=== PATIENT | male | born 1955 | race Caucasian/White ===

== ENCOUNTER 2020-10-17 15:30 | Emergency (ER) | payer BC ==
[~2020-10-17] VITALS: Ht 180.3 cm; Wt 88.0 kg
[2020-10-17] MEDS ORDERED: DICL75TA PO (15:44)
[2020-10-17] MEDS ORDERED: LEVOTAB10 PO (15:44)
[2020-10-17] MEDS ORDERED: TRAM50TA2 PO (15:44)
[2020-10-17] MEDS ORDERED: RAMI1CAP24 PO (15:44)
[2020-10-17] MEDS ORDERED: FENO145T7 PO (15:44)
[2020-10-17] MEDS ORDERED: METO1TAB7 PO (15:44)
[2020-10-17] MEDS ORDERED: XARE20TA PO (15:44)
[2020-10-17] MEDS ORDERED: PRAV40TA2 PO (15:44)
[2020-10-17] MEDS ORDERED: CLOP75TA2 PO (15:44)
--- NOTE | 2020-10-17 16:09 | REP ---
INDICATION: CHEST PAIN. COMPARISON: None. TECHNIQUE: Single portable AP view of the chest was performed. FINDINGS: There is no acute infiltrate or pulmonary edema. Lungs are clear. The heart is not significantly enlarged. The mediastinal silhouette is unremarkable. The visualized osseous structures are intact. IMPRESSION: No acute pulmonary disease. <Electronically signed by Robe Garrett > 10/17/20 [id number]
[2020-10-17 16:27] LABS: BASO # 0.1 10^3/uL (0.0-0.2); BASO % 0.8 % (0.0-1.0); EOS # 0.4 10^3/uL (0.0-0.5); EOS % 4.7 % (0.0-3.0); HEMATOCRIT 45.1 % (42.0-52.0); HEMOGLOBIN 14.8 g/dl (13.5-17.5); LYMPH # 1.8 10^3/uL (1.5-5.0); LYMPH % 24.4 % (24.0-44.0); MEAN CORPUSCULAR HEMOGLOBIN 28.5 pg (27.0-33.0); MEAN CORPUSCULAR HGB CONC 32.8 g/dl (32.0-36.5); MEAN CORPUSCULAR VOLUME 86.7 fl (80.0-96.0); MONO # 0.9 10^3/uL (0.0-0.8); MONO % 11.7 % (2.0-8.0); NEUTROPHILS # 4.4 10^3/uL (1.5-8.5); NEUTROPHILS % 58.3 % (36.0-66.0); PLATELET COUNT, AUTOMATED 356 10^3/uL (150-450); WHITE BLOOD COUNT 7.5 10^3/uL (4.0-10.0)
[2020-10-17 16:41] LABS: BLOOD UREA NITROGEN 27 MG/DL (7-18); CALCIUM LEVEL 9.4 MG/DL (8.8-10.2); CARBON DIOXIDE LEVEL 26 MEQ/L (21-32); CHLORIDE LEVEL 109 MEQ/L (98-107); CREATININE FOR GFR 1.82 MG/DL (0.70-1.30); GLOMERULAR FILTRATION RATE 39.8 (>49); GLUCOSE, FASTING 81 MG/DL (70-100); POTASSIUM SERUM 4.9 MEQ/L (3.5-5.1); SODIUM LEVEL 141 MEQ/L (136-145)
[2020-10-17 17:19] LABS: INR 2.36; PROTHROMBIN TIME 26.2 SECONDS (12.7-14.5)
[2020-10-17 17:20] LABS: PARTIAL THROMBOPLASTIN TIME 45.2 SECONDS (25.9-37.0)
[2020-10-17 17:23] LABS: RSV AMPLIFICATION NEGATIVE (NEGATIVE)
[2020-10-17 17:45] VITALS: BP 136/63
[2020-10-17 17:55] LABS: ALBUMIN 4.1 GM/DL (3.2-5.2); ALT/SGPT 33 U/L (12-78); BILIRUBIN,DIRECT < 0.1 MG/DL (0.0-0.2); BILIRUBIN,TOTAL 0.3 MG/DL (0.2-1.0); LIPASE 394 U/L (73-393); TOTAL PROTEIN 7.1 GM/DL (6.4-8.2)
--- NOTE | 2020-10-17 19:17 | ECGEPIP ---
[facility] - ED Test Date: 2020-10-17 Pat Name: HUMERA TOLENTINO Department: Room: - Gender: Male Supervisor Coffee: DEYANIRA : 1955 Requested By: Josh Issa Order Number: [id number] Reading MD: Josh Issa Measurements Intervals [place] Rate: 108 P: 61 UT: 208 QRS: 53 QRSD: 82 T: 42 QT: 334 QTc: 447 Interpretive Statements Sinus tachycardia with premature atrial complexes Nonspecific ST T wave changes No prior ECG for comparison Electronically Signed on 10-17-2020 19:16:38 EDT by Josh Issa
== END 2020-10-17 18:02 | disposition short-term general hospital (02) ==
LOC: M ED 15:30
DX: I20.0 Unstable angina (principal); R07.9 Chest pain, unspecified; R00.0 Tachycardia, unspecified; I25.10 Atherosclerotic heart disease of native coronary artery without angina pectoris; I10 Essential (primary) hypertension; E78.5 Hyperlipidemia, unspecified; Z95.5 Presence of coronary angioplasty implant and graft

== ENCOUNTER → 2022-10-20 | Day surgery (SDC) | payer BC, MEDICARE ==
[~2022-10-20] VITALS: Ht 177.8 cm; Wt 88.0 kg
[~2022-10-20] MED LIST: ASPI81TA26 PO; BSS IRRIG/VANCO(10MG)/TOBRA(5MG)/EPINEPH(1:1000-0.5CC)500ML BAG-ORONLY IR ONE; CEFUROXIME 1MG/0.1ML INTRACAMERAL INJ As Ordered ONE; CLOP75TA2 PO; CYCLOPENTOLATE 1% OPHTH SOLN 2ML BTL OD SCH; DICL75TA PO; FENO145T7 PO; GNP1000T11 PO; LEVOTAB10 PO; LIDOCAINE 1% SDV 5ML VIAL As Ordered ONE; LIDOCAINE 3.5 % 1ML OPHTH TOPICAL GEL OU ONE; METO1TAB32 PO; METO1TAB7 PO; MIDAZOLAM INJ 2MG/2ML VIAL As Ordered ONE; OFLOXACIN 0.3 % (OCUFLOX) OPTH SOL 5ML OD ONE; PHENYLEPHRINE 10% OPHTH SOL 5ML OD PRN; PHENYLEPHRINE 2.5% OPHTH SOL 2ML OD SCH; PRAV40TA2 PO; RAMI1CAP24 PO; TRAM50TA2 PO; TROPICAMIDE 1% OPHTH SOLN 15ML OD SCH; VITMTA PO; XARE20TA PO; fentaNYL 100 MCG/2 ML INJECTION As Ordered ONE
[2022-10-20 09:30] VITALS: BP 127/89; TEMP 96.6; O2SAT 96
== END | disposition home or self-care (01) ==
LOC: M SDC 07:48
PROVIDERS: ATTEND Ophthalmology
DX: H40.811 Glaucoma with increased episcleral venous pressure, right eye (principal); H25.11 Age-related nuclear cataract, right eye; I48.91 Unspecified atrial fibrillation; I10 Essential (primary) hypertension; I25.10 Atherosclerotic heart disease of native coronary artery without angina pectoris; Z98.61 Coronary angioplasty status; Z79.01 Long term (current) use of anticoagulants; J44.9 Chronic obstructive pulmonary disease, unspecified; E78.5 Hyperlipidemia, unspecified; Z79.899 Other long term (current) drug therapy
CPT/HCPCS: 66183; 66984; C1783; J0697; J2250; J3010; V2632

== ENCOUNTER → 2022-10-27 | Day surgery (SDC) | payer BC, MEDICARE ==
[~2022-10-27] VITALS: Ht 177.8 cm; Wt 87.6 kg
[~2022-10-27] MED LIST changes: -CYCLOPENTOLATE 1% OPHTH SOLN 2ML BTL OD SCH; +CYCLOPENTOLATE 1% OPHTH SOLN 2ML BTL OS SCH; +DUOVISC (0.50ML VISCOAT/0.85ML PROVISC) OPHTH KIT As Ordered ONE; -OFLOXACIN 0.3 % (OCUFLOX) OPTH SOL 5ML OD ONE; +OFLOXACIN 0.3 % (OCUFLOX) OPTH SOL 5ML OS ONE; -PHENYLEPHRINE 10% OPHTH SOL 5ML OD PRN; +PHENYLEPHRINE 10% OPHTH SOL 5ML OS PRN; -PHENYLEPHRINE 2.5% OPHTH SOL 2ML OD SCH; +PHENYLEPHRINE 2.5% OPHTH SOL 2ML OS SCH; -TROPICAMIDE 1% OPHTH SOLN 15ML OD SCH; +TROPICAMIDE 1% OPHTH SOLN 15ML OS SCH
[2022-10-27 10:06] VITALS: BP 124/64; TEMP 97.9; O2SAT 96
== END | disposition home or self-care (01) ==
LOC: M SDC 07:44
PROVIDERS: ATTEND Ophthalmology
DX: H25.12 Age-related nuclear cataract, left eye (principal); H40.812 Glaucoma with increased episcleral venous pressure, left eye; I10 Essential (primary) hypertension; E78.5 Hyperlipidemia, unspecified; J44.9 Chronic obstructive pulmonary disease, unspecified; I48.91 Unspecified atrial fibrillation; Z98.61 Coronary angioplasty status; I25.10 Atherosclerotic heart disease of native coronary artery without angina pectoris; Z79.01 Long term (current) use of anticoagulants; Z79.899 Other long term (current) drug therapy; Z79.82 Long term (current) use of aspirin
CPT/HCPCS: 66183; 66984; C1783; J0697; J2250; J3010; V2632

== ENCOUNTER → 2023-07-24 | Outpatient (CLI) | payer MEDICARE ==
[~2023-07-24] MED LIST changes: -BSS IRRIG/VANCO(10MG)/TOBRA(5MG)/EPINEPH(1:1000-0.5CC)500ML BAG-ORONLY IR ONE; -CEFUROXIME 1MG/0.1ML INTRACAMERAL INJ As Ordered ONE; -CYCLOPENTOLATE 1% OPHTH SOLN 2ML BTL OS SCH; -DUOVISC (0.50ML VISCOAT/0.85ML PROVISC) OPHTH KIT As Ordered ONE; -LIDOCAINE 1% SDV 5ML VIAL As Ordered ONE; -LIDOCAINE 3.5 % 1ML OPHTH TOPICAL GEL OU ONE; -MIDAZOLAM INJ 2MG/2ML VIAL As Ordered ONE; -OFLOXACIN 0.3 % (OCUFLOX) OPTH SOL 5ML OS ONE; -PHENYLEPHRINE 10% OPHTH SOL 5ML OS PRN; -PHENYLEPHRINE 2.5% OPHTH SOL 2ML OS SCH; -RAMI1CAP24 PO; +RAMI5CAP60 PO; -TROPICAMIDE 1% OPHTH SOLN 15ML OS SCH; -fentaNYL 100 MCG/2 ML INJECTION As Ordered ONE
== END ==
LOC: M RAD 13:37
PROVIDERS: ATTEND Nurse Practitioner Family
DX: N17.9 Acute kidney failure, unspecified (principal)

== ENCOUNTER → 2023-09-21 | Outpatient (CLI) | payer MEDICARE | LOC: M PLAIMG 10:08 | PROVIDERS: ATTEND Internal Medicine Pulmonary Disease | DX: R91.8 Other nonspecific abnormal finding of lung field (principal) ==

== ENCOUNTER → 2023-10-28 | Outpatient (REF) | payer MEDICARE ==
[2023-10-28 18:47] LABS: PERCENT SATURATION 21.7 % (19.7-50.0)
== END ==
LOC: M LAB REF 17:05
PROVIDERS: ATTEND Internal Medicine Nephrology
DX: D50.9 Iron deficiency anemia, unspecified (principal)

== ENCOUNTER → 2024-02-03 | Outpatient (CLI) | payer MEDICARE | LOC: M RAD 08:15 | PROVIDERS: ATTEND Internal Medicine | DX: R10.84 Generalized abdominal pain (principal); K42.9 Umbilical hernia without obstruction or gangrene; I77.811 Abdominal aortic ectasia ==